=== PATIENT | female | born 1980 | race Hispanic/Latino ===

== ENCOUNTER 2020-09-25 13:50 | Emergency (ER) | payer MEDICAID, OTHER ==
[~2020-09-25 13:50] MED LIST: PNV1TABL17 PO
[2020-09-25] MEDS ORDERED: ACETAMINOPHEN 500 MG TABLET ONE (14:12)
[2020-09-25] MEDS ORDERED: 0.9%NACL 1000ML 1,000 ML IV ONE (14:13)
== END 2020-09-25 17:01 | disposition home or self-care (01) ==
LOC: EDH 13:50
DX: B34.9 Viral infection, unspecified (principal); Z72.0 Tobacco use
CPT/HCPCS: 71045; 87804 ×2; 87880; 96360; 96361; 99284; J7030